=== PATIENT | male | born 1970 | race Caucasian/White ===

== ENCOUNTER 2019-02-18 20:08 | Inpatient (IN) | payer BC, MEDICAID, OTHER ==
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
[2019-02-18 22:26] LABS: Amphetamine Screen,Urine Not Detected (NotDetected); Barbiturate Screen,Urine Not Detected (NotDetected); Benzodiazepines Screen,Urine Not Detected (NotDetected); Cocaine Screen,Urine Detected (NotDetected); Methadone Screen, Urine Not Detected (NotDetected); Opiate Screen,Urine Not Detected (NotDetected); Oxycodone Screen, Urine Not Detected (NotDetected); Phencyclidine Screen,Urine Not Detected (NotDetected); Tricyclic Antidepressant,Urine Not Detected (NotDetected); Urn Cannabinoid Scrn Not Detected (NotDetected)
[2019-02-18] MEDS ORDERED: MAG HYDROX/AL HYDROX/SIMETH 30 ML CUP PO PRN (22:42)
[2019-02-18] MEDS ORDERED: MAGNESIUM HYDROXIDE 2,400 MG/10 ML CUP PO PRN (22:42)
[2019-02-18] MEDS ORDERED: ACETAMINOPHEN TAB 325 MG TAB PO PRN (22:42)
[2019-02-18] MEDS ORDERED: LORazepam 2 MG/ML INJ IM PRN (23:25)
[2019-02-18] MEDS ORDERED: ZIPRASIDONE 20 MG VIAL IM PRN (23:27)
[2019-02-18] MEDS: LORazepam 1 MG TAB PO PRN (23:34)
[2019-02-18 23:57] VITALS: BMI 31.4
[2019-02-19 00:46] LABS: Appearance,Urine Clear (Clear); Bilirubin,Urine Negative (Negative); Blood,Urine Negative (Negative); Color,Urine Light Yellow; Glucose,Urine (UA) Negative (Negative); Ketones,Urine Negative (Negative); Leukocyte Esterase,Urine Negative (Negative); Nitrite,Urine Negative (Negative); Protein,Urine Negative (Negative); Specific Gravity,Urine 1.007 (1.001-1.035); Urobilinogen,Urine <2.0 mg/dL (<2.0)
[2019-02-19] MEDS: NICOTINE 21MG/24HR PATCH TRANSDERM SCH (08:28)
[2019-02-19 08:34] LABS: Basophils % (A) 0 %; Eosinophils # (A) 0.2 k/uL (0-0.7); Eosinophils % (A) 2 %; HCT 45.9 % (39.0-53.0); Lymphocytes # (A) 2.1 k/uL (1.0-4.8); Lymphocytes % (A) 21 %; MCH 29.6 pg (25.0-35.0); MCHC 32.7 g/dL (31.0-37.0); MCV 90.6 fL (80.0-100.0); Mean Platelet Volume 6.7; Monocytes # (A) 0.5 k/uL (0-1.0); Monocytes % (A) 5 %; Neutrophils % (A) 71 %; Platelet Count 355 k/uL (150-450); RBC 5.07 m/uL (4.30-5.90); RDW 14.7 % (11.5-15.5)
[2019-02-19 08:48] LABS: Chloride 109 mmol/L (98-107)
[2019-02-19 08:50] LABS: ALT 26 U/L (21-72); AST 34 U/L (17-59); African American GFR (CKD) >90 (>60 ml/min/1.73 sqM); Albumin 4.2 g/dL (3.5-5.0); Alkaline Phosphatase 72 U/L (38-126); Anion Gap 6 mmol/L; Blood Urea Nitrogen 13 mg/dL (9-20); Calcium 9.4 mg/dL (8.4-10.2); Carbon Dioxide 26 mmol/L (22-30); Cholesterol 211 mg/dL (<200); Glucose 114 mg/dL (74-99); HDL Cholesterol 49 mg/dL (40-60); LDL Cholesterol,Calculated 138 mg/dL (0-99); Potassium 4.6 mmol/L (3.5-5.1); Sodium 141 mmol/L (137-145); Total Bilirubin 0.5 mg/dL (0.2-1.3); Total Protein 7.2 g/dL (6.3-8.2); Triglycerides 119 mg/dL (<150)
[2019-02-19] MEDS ORDERED: buPROPion XL 150 MG TAB.ER.24H PO SCH (09:00)
[2019-02-19] MEDS ORDERED: PARoxetine 10 MG TAB PO SCH (09:00)
[2019-02-19 11:26] LABS: Urine Alcohol Negative (Negative); Urine Barbiturate Negative (Negative); Urine Cocaine Positive (Negative); Urine Methadone Negative (Negative); Urine Opiates Negative (Negative); Urine Phencyclidine Negative (Negative)
[2019-02-19] MEDS ORDERED: buPROPion XL 150 MG TAB.ER.24H PO STA (11:39)
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
[2019-02-19] MEDS: LORazepam 1 MG TAB PO PRN (19:54)
[2019-02-19 20:17] LABS: Hemoglobin A1C 5.9 % (4.0-6.0)
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
[2019-02-20] MEDS: NICOTINE 21MG/24HR PATCH TRANSDERM SCH (08:04)
[2019-02-20] MEDS: LORazepam 1 MG TAB PO PRN ×2 (08:05→20:15)
[2019-02-20] MEDS: buPROPion XL 300 MG TAB.ER.24H PO SCH (08:05)
--- NOTE | 2019-02-20 15:02 | P.PN ---
Progress Note - Text Progress Note Date: 02/20/19 Interval History: Patient is a 48-year-old male who was found sleeping in his room, states that he's feeling sleepy today and is spoken with his on one occasion. He states that she told him he still has his job but he is unsure if he can return home to live or not. Patient states that he is not having any suicidal ideation and has not made any further threats to his . He states he's feeling depressed because he is in here. Mental Status: Appearance/Attitude: Patient is dressed in a hospital gown, makes eye contact and is cooperative Behavior: Patient does not exhibit any psychomotor agitation or retardation Speech/Language: Patient's speech is spontaneous and normal volume and rhythm and he is coherent Thought Process: Patient is goal-directed there is no evidence of loose association or flight of ideas Thought Content: Patient denies any auditory or visual hallucinations and no delusions or paranoid ideation were elicited. Patient states he is feeling depressed because he is in here, felt sleepy today and has not been attending groups. Patient states that his appetite is good. He states that he spoke with his and still has his job but is unsure of whether he can return home to live or not. Suicidal/Homicidal Ideation: Patient denies any current suicidal or homicidal ideation Sensorium/Cognition: Patient is alert and oriented to person, place, and time and his recent and remote memory are grossly intact Mood/Affect: Patient's mood is stable his affect is appropriate Insight/Judgment: Patient's insight and judgment are fair Assessment: Patient states that on the medication Wellbutrin 300 mg in the morning Paxil 30 mg at bedtime his mood has been fairly stable. He states that he has spoken with his on one occasion and she told him that he still has his job but he is unsure if he can return to live there and states if not he has no other housing options. Patient again declined any referral for inpatient rehab stating that he had people on the outside that could help him. Patient and I discussed possible discharge later this week once a family meeting has been set up. Patient will continue on his current medications. Plan: []
[2019-02-20] MEDS: PARoxetine 10 MG TAB PO SCH (20:14)
[2019-02-21 06:51] VITALS: TEMP 98
[2019-02-21] MEDS: NICOTINE 21MG/24HR PATCH TRANSDERM SCH (08:22)
[2019-02-21] MEDS: LORazepam 1 MG TAB PO PRN ×2 (08:22→20:40)
[2019-02-21] MEDS: buPROPion XL 300 MG TAB.ER.24H PO SCH (08:22)
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
[2019-02-21] MEDS: PARoxetine 10 MG TAB PO SCH (20:37)
[2019-02-22 07:11] VITALS: BP 138/72; PULSE 66; RESP 16
[2019-02-22] MEDS: NICOTINE 21MG/24HR PATCH TRANSDERM SCH (08:24)
[2019-02-22] MEDS: buPROPion XL 300 MG TAB.ER.24H PO SCH (08:24)
[2019-02-22] MEDS: LORazepam 1 MG TAB PO PRN (08:25)
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
== END 2019-02-22 15:00 | disposition home or self-care (01) | DRG 885 ==
LOC: EC 20:08 → 3MHU 22:39
PROVIDERS: ADMIT Psychiatry & Neurology Psychiatry; ATTEND Psychiatry & Neurology Psychiatry
DX: F33.1 Major depressive disorder, recurrent, moderate (principal); R45.851 Suicidal ideations; R45.850 Homicidal ideations; G25.81 Restless legs syndrome; F14.10 Cocaine abuse, uncomplicated; F10.10 Alcohol abuse, uncomplicated; F17.210 Nicotine dependence, cigarettes, uncomplicated; Z71.6 Tobacco abuse counseling; Z79.899 Other long term (current) drug therapy; Z91.5 Personal history of self-harm; Z90.49 Acquired absence of other specified parts of digestive tract; Z98.890 Other specified postprocedural states
CPT/HCPCS: 80053; 80061; 80306; 81003; 82075; 83036; 84443; 85025; 99285